=== PATIENT | female | born 2000 | race Caucasian/White ===

== ENCOUNTER 2023-11-27 00:01 | Inpatient (IN) | payer BC ==
[~2023-11-27] VITALS: Ht 165.1 cm; Wt 82.6 kg
[2023-11-27 01:20] VITALS: BP 114/86
[2023-11-27 01:23] LABS: AMPHETAMINES, URINE NEGATIVE (NEGATIVE); BARBITURATES, URINE NEGATIVE (NEGATIVE); BENZODIAZEPINE, URINE NEGATIVE (NEGATIVE); BUPRENORPHINE, URINE NEGATIVE (NEGATIVE); CANNABINOID, URINE NEGATIVE (NEGATIVE); COCAINE, URINE NEGATIVE (NEGATIVE); ECSTASY, URINE NEGATIVE (NEGATIVE); FENTANYL, URINE NEGATIVE (NEGATIVE); METHADONE, URINE NEGATIVE (NEGATIVE); OPIATES, URINE NEGATIVE (NEGATIVE); OXYCODONE, URINE NEGATIVE (NEGATIVE); PHENCYCLIDINE, URINE NEGATIVE (NEGATIVE)
[2023-11-27 01:25] LABS: ABO O; ANTIBODY SCREEN NEGATIVE; RH POSITIVE
[2023-11-27 01:47] LABS: HEMATOCRIT 36.8 % (35.0-50.0); HEMOGLOBIN 12.1 g/dL (12.0-18.0); MCH 27.1 (27-36); MCHC 32.9 g/dl (30-36); MCV 82.4 fl (81-99); RBC 4.47 M/ul (4.3-5.7); RDW 15.6 (10.5-15.0)
--- NOTE | 2023-11-27 14:45 | PR ---
[facility] [address], [place] [address] Signed Progress Notes IP Datetime Report Generated by CPN: 11/27/2023 14:44 PROGRESS NOTES: [id number] Impression: Normal Progression of Labor; Reassuring Heart Rate Procedures: Artificial ROM; Intrauterine Pressure Catheter; Sterile Vag Exam Plan: Continue Present Management; Anticipate Vaginal Delivery Informed Consent Obtain: Vaginal Delivery VITAL SIGNS: [id number] Vital Signs: Reviewed; Within Normal Limits EXAM: [id number] Dilatation: 3.5 Effacement: 90 Station: -2 Contractions: q 1-2 min MEMBRANES: [id number] Membranes Status: Bulging Comments: Pt seen and examined. Comfortable w/ epidural. Continues to have tachysytolic contractions despite dose of terbutaline. Not on pitocin. AROM performed and IUPC inserted. Will monitor closely FETUS A: [id number] FHR Baseline: 145 Variability: Moderate 6-25bpm Accelerations: 15X15 Decelerations: None FHR Category: Category I Presentation: Vertex Comments on Fetus A: No evidence of metabolic acidosis FETUS B: [id number] Signing Physician: Gianna Dawkins DO Copies: ~ *Electronically Signed* 11/27/23 1445 GIANNA DAWKINS (ANNA) DO PATIENT NAME: LEAH SHAH PROGRESS NOTE DATE OF : 02 PHYSICIAN: GIANNA DAWKINS (JD) DO RPT #: [id number] REPORT IS CONFIDENTIAL AND NOT TO BE RELEASED WITHOUT AUTHORIZATION
--- NOTE | 2023-11-27 20:00 | PR ---
[facility] [address] [facility] [place], [place] [address] Signed PP Progress Notes Datetime Report Generated by CPN: 11/27/2023 20:00 SUBJECTIVE: [id number] Pain: Within Normal Limits Vital Signs: [id number] Vital Signs: Reviewed Notable Details: QBL 60cc Cardiovascular: Normal Respiratory: Normal Abdomen/Uterus: Normal Lochia: Abnormal Vulva/Perineum: Normal Extremities: Normal Exam Comments: Uterus firm. Small trickle of blood w/ fundal massage. Small intrauterine clot expressed. Cytotec 800mcg placed by physician. Bleeding improved. IMPRESSION/PLAN/PROCEDURES: [id number] Impression: Normal Progression Progress Notes: Pt w/ small trickle of blood. Pt evalutated; clot expressed, no retained POC noted, and cytotec administered as above. Add TXA 1g IV and additional liter of picotin. Will monitor closely. Total QBL 210cc. Signing Physician: Gianna Dawkins DO Copies: ~ *Electronically Signed* 11/27/231999 GIANNA DAWKINS (ANNA) DO PATIENT NAME: LEAH SHAH PROGRESS NOTE DATE OF : 02 PHYSICIAN: GIANNA DAWKINS) DO RPT #: [id number] REPORT IS CONFIDENTIAL AND NOT TO BE RELEASED WITHOUT AUTHORIZATION
[2023-11-28 06:07] LABS: HEMATOCRIT 37.1 % (35.0-50.0); HEMOGLOBIN 12.3 g/dL (12.0-18.0); MCHC 33.1 g/dl (30-36); MCV 81.7 fl (81-99); RBC 4.54 M/ul (4.3-5.7); RDW 15.7 (10.5-15.0)
--- NOTE | 2023-11-28 11:26 | PR ---
[facility] [address] [place], [place] [address] Signed PP Progress Notes Datetime Report Generated by CPN: 11/28/2023 11:26 SUBJECTIVE: [id number] Pain: Within Normal Limits Nausea/Vomiting: Denies Flatus: Yes Bowel Movement: No Vital Signs: [id number] Vital Signs: Reviewed; Within Normal Limits Notable Details: QBL 60cc Cardiovascular: Normal Respiratory: Normal Abdomen/Uterus: Normal Lochia: Normal Vulva/Perineum: Not Done Breasts: Not Done CVA Tenderness: Normal Extremities: Normal Incision: Not Applicable Progress: Normal Exam Comments: Fundus firm U-2 nontender IMPRESSION/PLAN/PROCEDURES: [id number] Impression: Normal Progression Plan: Continue Present Management Progress Notes: Pt seen and examined. Doing well. Ambulating, voiding, and tolerating full diet. Pain and lochia minimal. well. No fevers/chills or other concerns. Anticipate d/c home tomorrow. Signing Physician: Gianna Dawkins DO Copies: ~ *Electronically Signed* 11/28/23 [id number] GIANNA DAWKINS (ANNA) DO PATIENT NAME: LEAH SHAH PROGRESS NOTE DATE OF : 02 PHYSICIAN: GIANNA DAWKINS) DO RPT #: [id number] REPORT IS CONFIDENTIAL AND NOT TO BE RELEASED WITHOUT AUTHORIZATION
--- NOTE | 2023-11-28 14:46 | NUR ---
[facility]BC ROUNDS. 15 MINUTES. MOTHER AND GRANDMOTHER IN ROOM EXHIBITED STRONG REALTIONAL RESOURCES AND NO ANXIETY. LOVING INTERACTION WITH BABY EXHIBITED. PROVIDED PRAYER. NO FOLLOW UP REQUIRED AT THIS TIME.
--- NOTE | 2023-11-29 08:00 | PR ---
[facility] [address] [facility] [place], [place] [address] Signed PP Progress Notes Datetime Report Generated by CPN: 11/29/2023 08:00 SUBJECTIVE: [id number] Pain: Within Normal Limits Nausea/Vomiting: Denies Flatus: Yes Bowel Movement: No Vital Signs: [id number] Vital Signs: Reviewed; Within Normal Limits Notable Details: QBL 60cc Cardiovascular: Not Done Respiratory: Not Done Abdomen/Uterus: Abnormal Lochia: Normal Vulva/Perineum: Not Done Breasts: Not Done CVA Tenderness: Not Done Extremities: Normal Incision: Not Applicable Progress: Normal Exam Comments: Fundus firm, NT @ U-2. IMPRESSION/PLAN/PROCEDURES: [id number] Impression: Normal Progression Plan: Discharge Procedures: None Progress Notes: Doing well. She is ready for D/C. Signing Physician: Idalia Goetz MD Copies: ~ *Electronically Signed* 11/29/23 0800 IDALIA GOETZ MD PATIENT NAME: LEAH SHAH PROGRESS NOTE DATE OF : 02 PHYSICIAN: IDALIA GOETZ MD RPT #: [id number] REPORT IS CONFIDENTIAL AND NOT TO BE RELEASED WITHOUT AUTHORIZATION
== END 2023-11-29 12:50 | disposition home or self-care (01) | DRG 806 ==
LOC: FBC 00:01
PROVIDERS: ADMIT Obstetrics & Gynecology; ATTEND Obstetrics & Gynecology
PROC: 10E0XZZ Delivery of Products of Conception, External Approach (ICD-10-PCS; principal; 2023-11-27)
PROC: 10H07YZ Insertion of Other Device into Products of Conception, Via Natural or Artificial Opening (ICD-10-PCS; 2023-11-27)
PROC: 10907ZC Drainage of Amniotic Fluid, Therapeutic from Products of Conception, Via Natural or Artificial Opening (ICD-10-PCS; 2023-11-27)
PROC: 3E0R3BZ Introduction of Anesthetic Agent into Spinal Canal, Percutaneous Approach (ICD-10-PCS; 2023-11-27)
PROC: 00HU33Z Insertion of Infusion Device into Spinal Canal, Percutaneous Approach (ICD-10-PCS; 2023-11-27)
PROC: 0KQM0ZZ Repair Perineum Muscle, Open Approach (ICD-10-PCS; 2023-11-27)
PROC: 0UQMXZZ Repair Vulva, External Approach (ICD-10-PCS; 2023-11-27)
DX: O48.0 Post-term pregnancy (principal); O99.324 Drug use complicating childbirth; Z37.0 Single live birth; O77.0 Labor and delivery complicated by meconium in amniotic fluid; O69.1XX0 Labor and delivery complicated by cord around neck, with compression, not applicable or unspecified; Z3A.40 40 weeks gestation of pregnancy; O70.1 Second degree perineal laceration during delivery; O71.82 Other specified trauma to perineum and vulva; O35.EXX0 Maternal care for other (suspected) fetal abnormality and damage, fetal genitourinary anomalies, not applicable or unspecified; F12.90 Cannabis use, unspecified, uncomplicated; O99.344 Other mental disorders complicating childbirth; F41.9 Anxiety disorder, unspecified; F32.A Depression, unspecified; Z79.899 Other long term (current) drug therapy
CPT/HCPCS: 36415; 80307; 85027; 86850; 86900; 86901; A9270; J3105